=== PATIENT | female | born 1975 | race Caucasian/White ===

== ENCOUNTER 2018-07-15 11:04 | Emergency (ER) | payer MEDICARE ==
[~2018-07-15] VITALS: Ht 170.2 cm; Wt 61.2 kg
[~2018-07-15 11:04] MED LIST: AMBIEN; ATEN-60 PO; HYDRPOW88; OXYCODONE HCL 30 MG TABLET; PROMETHAZINE; VENL75TA
[2018-07-15 11:42] VITALS: BP 133/83
[2018-07-15] MEDS ORDERED: ONDANSETRON ODT 4 MG TAB PO ONE (12:00)
== END 2018-07-15 12:47 | disposition home or self-care (01) ==
LOC: ER 11:04
DX: S06.0X0S Concussion without loss of consciousness, sequela (principal); S00.03XD Contusion of scalp, subsequent encounter; I10 Essential (primary) hypertension; F17.210 Nicotine dependence, cigarettes, uncomplicated; X58.XXXD Exposure to other specified factors, subsequent encounter
CPT/HCPCS: 70450; 99284; Q0162

== ENCOUNTER 2018-12-29 18:49 | Emergency (ER) | payer MEDICARE ==
[~2018-12-29] VITALS: Ht 170.2 cm; Wt 65.8 kg
[2018-12-29 20:49] VITALS: BP 167/98
[2018-12-29] MEDS ORDERED: MEPERIDINE HCL (50 MG/ML) 1 ML VIAL IM ONE (21:45)
[2018-12-29] MEDS ORDERED: ONDANSETRON ODT 4 MG TAB PO ONE (21:45)
== END 2018-12-30 05:27 | disposition home or self-care (01) ==
LOC: ER 18:52
DX: S52.125A Nondisplaced fracture of head of left radius, initial encounter for closed fracture (principal); S52.615A Nondisplaced fracture of left ulna styloid process, initial encounter for closed fracture; F17.210 Nicotine dependence, cigarettes, uncomplicated; W51.XXXA Accidental striking against or bumped into by another person, initial encounter; Y93.89 Activity, other specified; Y99.8 Other external cause status; Y92.89 Other specified places as the place of occurrence of the external cause
CPT/HCPCS: 29125; 73090; 73110; 81025; 96372; 99284; J2175; Q0162

== ENCOUNTER 2020-12-14 18:39 | Emergency (ER) | payer MEDICAID, MEDICARE ==
[~2020-12-14 18:39] MED LIST changes: +VENL1TAB99; -VENL75TA
== END 2020-12-15 00:01 | disposition left against medical advice (07) ==
LOC: EDUNIT# 18:39 → ER 18:42
DX: F10.10 Alcohol abuse, uncomplicated (principal); Z53.21 Procedure and treatment not carried out due to patient leaving prior to being seen by health care provider